=== PATIENT | female | born 1950 | race Caucasian/White ===

== ENCOUNTER 2021-01-27 07:38 | Outpatient (CLI) | payer OTHER | END 2021-01-27 07:48 | disposition home or self-care (01) | LOC: RAD 07:38 | PROVIDERS: ATTEND Orthopaedic Surgery | DX: M48.062 Spinal stenosis, lumbar region with neurogenic claudication (principal) ==

== ENCOUNTER 2021-03-28 09:37 | Outpatient (CLI) | payer OTHER | END 2021-03-28 09:43 | disposition home or self-care (01) | LOC: RAD 09:37 | DX: M17.0 Bilateral primary osteoarthritis of knee (principal) ==

== ENCOUNTER 2021-09-23 12:14 | Outpatient (CLI) | payer OTHER | END 2021-09-23 12:17 | disposition home or self-care (01) | LOC: TOM 12:14 | DX: M16.0 Bilateral primary osteoarthritis of hip (principal) ==

== ENCOUNTER 2022-01-27 15:00 | Outpatient (CLI) | payer OTHER | END 2022-01-27 15:08 | disposition home or self-care (01) | LOC: TOM 15:00 | PROVIDERS: ATTEND Internal Medicine | DX: M25.461 Effusion, right knee (principal) ==